=== PATIENT | male | born 1950 | race Caucasian/White ===

== ENCOUNTER 2019-08-20 06:54 | Day surgery (SDC) | payer MEDICARE, BC ==
[2019-08-20] MEDS ORDERED: Propofol 200 MG/20 ML SDV IV ONE (06:55)
[2019-08-20] MEDS ORDERED: Lidocaine 1% PF 2 ML SDV INJECT ONE (06:55)
[2019-08-20] MEDS ORDERED: Sodium Chloride 0.9% 10 ML Syringe FLUSH PRN (08:00)
[2019-08-20] MEDS ORDERED: Lactated Ringers 1,000 ML IV SCH (08:00)
--- NOTE | 2019-08-20 08:46 | PCM.OPNOTE ---
- General Post-Op/Procedure Note Date of Surgery/Procedure: 08/20/19 Operative Procedure(s): c scope Findings: negative study Pre Op Diagnosis: + colo guard Post-Op Diagnosis: nl colonoscopy Anesthesia Technique: MAC Primary Surgeon: Martin Byers Anesthesia Provider: Lamine Maldonado Pathology: none Complications: None Condition: Good Free Text/Narrative:: see dictation
--- NOTE | 2019-08-20 09:01 | OR ---
DATE OF OPERATION: 08/20/2019 SURGEON: Martin Byers MD PROCEDURE PERFORMED: Colonoscopy. PREOPERATIVE DIAGNOSIS: Positive Cologuard test. POSTOPERATIVE DIAGNOSIS: Normal exam. INDICATIONS FOR PROCEDURE: This is a 68-year-old white male who was referred with a positive history of Cologuard. He has a first-degree relative who had cancer, who at the age of 72. This was his mother. He is completely asymptomatic. DESCRIPTION OF OPERATION: After an excellent IV sedation was administered, digital rectal exam was performed. No marked abnormality was noted. The flexible colonoscope was inserted and advanced to the cecum. The prep was good. There were some small areas of liquid stool that we were able to irrigate and get an excellent view of the colonic mucosa. The following findings were noted. Ascending colon, unremarkable. Transverse colon, unremarkable. Descending colon, unremarkable. Sigmoid and rectum, unremarkable. Colon was deflated as the scope was removed. The patient tolerated the procedure well, was taken to the recovery room. RECOMMENDATIONS: Repeat colonoscopy in 10 years. /[id number] /MODL
== END 2019-08-20 09:32 | disposition home or self-care (01) ==
LOC: FB.SDS 06:54
PROVIDERS: ATTEND Surgery
DX: R19.5 Other fecal abnormalities (principal); I10 Essential (primary) hypertension; E03.9 Hypothyroidism, unspecified; E66.9 Obesity, unspecified; Z79.890 Hormone replacement therapy; Z79.899 Other long term (current) drug therapy; Z68.32 Body mass index [BMI] 32.0-32.9, adult; Z80.0 Family history of malignant neoplasm of digestive organs
CPT/HCPCS: 00811; 45378; J2001; J2704; J7120